=== PATIENT | female | born 1940 | race Caucasian/White ===

== ENCOUNTER 2021-01-03 08:28 | Day surgery (SDC) | payer MEDICARE ==
[~2021-01-03] VITALS: Ht 172.7 cm; Wt 95.0 kg
[2021-01-03] MEDS ORDERED: DIPHENHYDRAMINE 50 MG/ML, 1ML IVPush ONE (09:00)
[2021-01-03] MEDS ORDERED: PLEASE ENTER HEIGHT AND WEIGHT MC SCH (09:00)
[2021-01-03] MEDS ORDERED: PLEASE ENTER ALLERGIES MC SCH (09:00)
[2021-01-03 09:15] VITALS: BP 116/63
[2021-01-03] MEDS ORDERED: WARF-36 PO (09:20)
[2021-01-03] MEDS ORDERED: LEVO25TA2 PO (09:20)
[2021-01-03] MEDS ORDERED: PRAV20TA2 PO (09:20)
[2021-01-03] MEDS ORDERED: HYDR200T72 PO ×2 (09:20→09:24)
[2021-01-03] MEDS ORDERED: ROPI0.25 PO (09:20)
[2021-01-03] MEDS ORDERED: VALS160T3 PO (09:20)
[2021-01-03] MEDS ORDERED: METO25TA2 PO (09:20)
[2021-01-03] MEDS ORDERED: AMLO5TAB4 PO (09:20)
[2021-01-03] MEDS ORDERED: ESOM40CA PO (09:20)
[2021-01-03 09:36] LABS: BASOPHILS % (AUTO) 1 % (0-1); EOSINOPHILS % (AUTO) 1 % (1-7); LYMPHOCYTES % (AUTO) 18 % (22-44); MEAN CORPUSCULAR HEMOGLOBIN 30.5 pg (27.0-34.8); MEAN CORPUSCULAR HGB CONC 33.2 g/dL (32.4-35.8); MEAN PLATELET VOLUME 8.9 fL (7.4-10.4); MONOCYTES % (AUTO) 10 % (2-9); NEUTROPHILS % (AUTO) 70 % (42-75); PLATELET COUNT 210 x10^3/uL (130-400); RED BLOOD COUNT 3.24 x10^6/uL (3.82-5.3)
[2021-01-03 09:39] LABS: MD NO
[2021-01-03 09:42] LABS: INTERNATIONAL NORMALIZED RATIO 1.26 (0.93-1.1); PROTHROMBIN TIME 13.4 Seconds (9.6-11.5)
[2021-01-03 09:43] LABS: ANION GAP 5 mmol/L (5-15); CALCIUM 9.4 mg/dL (8.5-10.1); CHLORIDE 111 mmol/L (98-107); CREATININE 0.95 mg/dL (0.55-1.02)
[2021-01-03] MEDS ORDERED: LIDOCAINE-MPF 1%, 5ML ONE (09:50)
== END 2021-01-03 12:40 | disposition home or self-care (01) ==
LOC: CACL 08:28
PROVIDERS: ATTEND Internal Medicine Cardiovascular Disease
DX: R06.02 Shortness of breath (principal); I27.9 Pulmonary heart disease, unspecified; I10 Essential (primary) hypertension; G47.30 Sleep apnea, unspecified; Z87.891 Personal history of nicotine dependence; Z91.013 Allergy to seafood
CPT/HCPCS: 36415; 80048; 82803; 85025; 85610; 93451; C1769; C1894

== ENCOUNTER 2021-05-03 12:30 | Outpatient (CLI) | payer MEDICARE ==
[~2021-05-03 12:30] MED LIST: AMLO5TAB4 PO; ESOM40CA PO; HYDR200T72 PO; LEVO25TA2 PO; METO25TA2 PO; PRAV20TA2 PO; ROPI0.25 PO; VALS160T3 PO; WARF-36 PO
== END 2021-05-03 23:59 | disposition home or self-care (01) ==
LOC: CVU 12:30
PROVIDERS: ATTEND Registered Nurse
DX: I82.811 Embolism and thrombosis of superficial veins of right lower extremity (principal); R59.0 Localized enlarged lymph nodes; R60.9 Edema, unspecified
CPT/HCPCS: 93970